=== PATIENT | female | born 1970 | race African-American/Black ===

== ENCOUNTER → 2025-04-29 | Outpatient (CLI) | payer OTHER | END | disposition home or self-care (01) | LOC: LAB 11:10 | PROVIDERS: ATTEND Nurse Practitioner Family | DX: M79.10 Myalgia, unspecified site (principal) ==

== ENCOUNTER → 2025-09-07 | Outpatient (CLI) | payer OTHER | END | disposition home or self-care (01) | LOC: RAD 13:21 | PROVIDERS: ATTEND Nurse Practitioner Family | DX: M19.032 Primary osteoarthritis, left wrist (principal); M25.532 Pain in left wrist ==